=== PATIENT | male | born 1935 | race Caucasian/White ===

== ENCOUNTER → 2017-02-12 | Outpatient (CLI) | payer MEDICARE, OTHER ==
[~2017-02-12] MED LIST: ABIR250T PO; ATOR20TA9 PO; CALC-112 PO; DENO120V IM; ENZA40CA PO; FINA5TAB4 PO; LEUP3.75 IM; OXYC-302 PO; PRED10TA PO; UBID100C11 PO; VITAMIN B12 PO
== END | disposition home or self-care (01) ==
LOC: RAD 11:31
PROVIDERS: ATTEND Radiology Radiation Oncology
DX: C61 Malignant neoplasm of prostate (principal)
CPT/HCPCS: 79101; A9606; J1642

== ENCOUNTER → 2017-03-17 | Outpatient (CLI) | payer MEDICARE, OTHER | END | disposition home or self-care (01) | LOC: RAD 10:46 | PROVIDERS: ATTEND Radiology Radiation Oncology | DX: C61 Malignant neoplasm of prostate (principal); C79.51 Secondary malignant neoplasm of bone | CPT/HCPCS: 79101; A9606; J1642 ==

== ENCOUNTER → 2017-06-09 | Outpatient (CLI) | payer MEDICARE, OTHER | END | disposition home or self-care (01) | LOC: RAD 10:35 | PROVIDERS: ATTEND Radiology Radiation Oncology | DX: C61 Malignant neoplasm of prostate (principal); C79.51 Secondary malignant neoplasm of bone | CPT/HCPCS: 79101; A9606; J1642 ==

== ENCOUNTER 2017-08-12 15:54 | Inpatient (IN) | payer MEDICARE, OTHER ==
[~2017-08-12] VITALS: Ht 177.8 cm; Wt 90.2 kg
[2017-08-12] VITALS (9 sets, daily range): BP systolic 114–129; BP diastolic 46–78
[~2017-08-12 15:54] MED LIST changes: -UBID100C11 PO; +UBID100C41 PO
[2017-08-12] MEDS ORDERED: SODIUM CHLORIDE FLUSH 10ML SYR IVF ONE ×2 (16:30→17:30)
[2017-08-12] MEDS ORDERED: PANTOPRAZOLE 40 MG IV IVPush ONE (16:30)
[2017-08-12] MEDS ORDERED: SODIUM CHLORIDE 0.9% 1,000ML IVBOLUS ONE (16:30)
[2017-08-12] MEDS ORDERED: ONDANSETRON 2MG/ML, 2ML IVPush ONE (16:30)
[2017-08-12 16:39] LABS: BLOOD UREA NITROGEN 28 mg/dL (7-18)
[2017-08-12 16:44] LABS: IS PT STATUS REG ER OR PRE ER? YES
[2017-08-12 17:03] LABS: WHITE BLOOD COUNT 1.8 x10^3/uL (3.4-10)
[2017-08-12 17:04] LABS: HEMATOCRIT 18.6 % (39.2-51.8); HEMOGLOBIN 6.7 g/dL (13.7-18.0)
[2017-08-12 17:05] LABS: DIFF TOTAL CELLS COUNTED 100 CELL DIFF
[2017-08-12 17:33] LABS: ANISOCYTOSIS 2+; MICROCYTOSIS 1+
[2017-08-12 17:34] LABS: HYPOCHROMIA 1+; OVALOCYTES 1+; POLYCHROMASIA 1+
[2017-08-12 17:36] LABS: VERIFY COUNTS? YES
[2017-08-12] MEDS ORDERED: HYDROcodone/APAP 5/325 TABLET PO PRN (19:00)
[2017-08-12] MEDS ORDERED: DOCUSATE 100 MG CAPSULE PO PRN (19:00)
[2017-08-12] MEDS ORDERED: TEMAZEPAM 15 MG CAPSULE PO PRN (19:00)
[2017-08-12] MEDS ORDERED: ONDANSETRON ODT 4 MG PO PRN (19:00)
[2017-08-12] MEDS ORDERED: ENALAPRILAT 1.25 MG/ML, 2ML IVPush PRN (19:00)
[2017-08-13 01:59] LABS: HEMOGLOBIN 7.9 g/dL (13.7-18.0); WHITE BLOOD COUNT 2.1 x10^3/uL (3.4-10)
[2017-08-13 02:07] LABS: BLOOD UREA NITROGEN 27 mg/dL (7-18)
[2017-08-13 02:31] LABS: DIFF TOTAL CELLS COUNTED 100 CELL DIFF
[2017-08-13 02:41] LABS: ANISOCYTOSIS 1+; MICROCYTOSIS 1+; VERIFY COUNTS? YES
[2017-08-13 02:42] LABS: OVALOCYTES 1+; POLYCHROMASIA 1+; TARGET CELLS 1+
[2017-08-13 03:14] VITALS: BP 130/67
[2017-08-13 07:30] VITALS: BP 125/66
[2017-08-13] MEDS ORDERED: CALCIUM/VITAMIN D3 250-125 TABLET PO SCH (09:00)
[2017-08-13] MEDS ORDERED: CYANOCOBALAMIN 1,000 MCG TABLET PO SCH (09:00)
[2017-08-13] MEDS ORDERED: TEMPLATE NON-FORMULARY MED. (Ubidecarenone** (Co Q-10**) 100 MG) PO SCH (09:00)
== END 2017-08-13 10:20 | disposition home or self-care (01) | DRG 808 ==
LOC: ED 17:12 → EDIP 17:22 → 3NW 18:35
PROVIDERS: ADMIT Hospitalist; ATTEND Hospitalist
PROC: 30233N1 Transfusion of Nonautologous Red Blood Cells into Peripheral Vein, Percutaneous Approach (ICD-10-PCS; principal; 2017-08-12)
DX: D61.810 Antineoplastic chemotherapy induced pancytopenia (principal); N17.0 Acute kidney failure with tubular necrosis; C79.51 Secondary malignant neoplasm of bone; C61 Malignant neoplasm of prostate; T45.1X5A Adverse effect of antineoplastic and immunosuppressive drugs, initial encounter; Z82.49 Family history of ischemic heart disease and other diseases of the circulatory system; Z83.3 Family history of diabetes mellitus; Z85.46 Personal history of malignant neoplasm of prostate; Z85.51 Personal history of malignant neoplasm of bladder; Z87.891 Personal history of nicotine dependence; Y92.89 Other specified places as the place of occurrence of the external cause
CPT/HCPCS: 36415; 36430; 71010; 80048; 81001; 82040; 84484; 85025; 85610; 85730; 86850; 86900; 86923; 87086; 93005; 96360; J7030; P9016

== ENCOUNTER 2017-10-06 10:43 | Day surgery (SDC) | payer MEDICARE, OTHER ==
[~2017-10-06] VITALS: Ht 177.8 cm; Wt 86.0 kg
[2017-10-06 11:11] VITALS: BP 101/63
[2017-10-06] MEDS ORDERED: SODIUM CHLORIDE 0.9% 1,000 ML IV SCH (11:14)
[2017-10-06] MEDS ORDERED: LIDOCAINE 1%, 20ML ONE (11:25)
[2017-10-06] MEDS ORDERED: FLUMAZENIL 0.1 MG/1 ML, 5ML ONE (11:54)
[2017-10-06] MEDS ORDERED: FENTANYL PF 100 MCG/2ML ONE (11:54)
[2017-10-06] MEDS ORDERED: NALOXONE 1 MG/ML, 2ML ONE (11:54)
[2017-10-06] MEDS ORDERED: MIDAZOLAM 1 MG/ML, 5ML ONE (11:54)
[2017-10-06 12:47] LABS: HEMATOCRIT 24.1 % (39.2-51.8); HEMOGLOBIN 8.4 g/dL (13.7-18.0)
[2017-10-06 12:56] LABS: ANISOCYTOSIS 2+; GIANT PLATELETS 1+; POLYCHROMASIA 1+
[2017-10-06 12:57] LABS: HYPOCHROMIA 1+; MICROCYTOSIS 1+; OVALOCYTES 1+
== END 2017-10-06 14:10 ==
LOC: OUT 10:43
PROVIDERS: ATTEND Internal Medicine Hematology & Oncology
DX: C61 Malignant neoplasm of prostate (principal); D61.818 Other pancytopenia
CPT/HCPCS: 36415; 38221; 77012; 85025; 85097; 99156; G0364; J2250; J3010; J3490; 99157; J2310